=== PATIENT | male | born 1975 | race Caucasian/White ===

== ENCOUNTER → 2022-12-27 | Outpatient (CLI) | payer BC ==
--- NOTE | 2022-12-27 09:34 | US ---
EXAMINATION TYPE: US scrotum with doppler. Grayscale and color Doppler Duplex imaging performed of t kaya scrotum. DATE OF EXAM: 12/27/2022 COMPARISON: NONE CLINICAL HISTORY: Q55.20. Lump left testicle. EXAM MEASUREMENTS: TESTICLES: Right Testicle: 3.1 x 1.8 x 2.8 cm Left Testicle: 2.9 x 1.9 x 2.6 cm EPIDIDYMIS HEAD: Right Epididymis: 1.0 x 1.2 x .9 cm Left Epididymis: .9 x 1.1 x .9 cm Doppler performed to assess for testicular vascularity; good bilateral color flow and waveforms are s een. There is no evidence of testicular torsion. Presence of hydroceles: No Presence of varicoceles: No Hypoechoic area with vascularity seen inferior to left testicle 1.7 x 1.7 x 2.6 cm. IMPRESSION: Heterogenous hypoechoic lesion demonstrated inferior to the left testicle measuring up to 2.6 cm with internal color flow demonstrated. This is indeterminate and malignancy is not excluded. Further workup is recommended with urology consultation.
== END | disposition home or self-care (01) ==
LOC: RADUSWWP 08:26
PROVIDERS: ATTEND Family Medicine
DX: Q55.20 Unspecified congenital malformations of testis and scrotum (principal)
CPT/HCPCS: 76870; 93975

== ENCOUNTER → 2023-01-06 | Outpatient (CLI) | payer BC | END | disposition home or self-care (01) | LOC: LABWHC1 12:25 | PROVIDERS: ATTEND Urology | DX: D29.20 Benign neoplasm of unspecified testis (principal) | CPT/HCPCS: 36415; 82105; 83615 ==